=== PATIENT | male | born 1990 | race African-American/Black ===

== ENCOUNTER 2021-09-20 12:04 | Emergency (ER) | payer OTHER ==
[2021-09-20 13:23] LABS: HEMOGLOBIN 16.4 gm/dl (14.0-17.5); RED BLOOD COUNT 5.3 M/UL (4.20-5.50); WHITE BLOOD COUNT 8.7 K/UL (4.5-11.0)
[2021-09-20 14:13] LABS: BUN/CREATININE RATIO 9 (0-10)
== END 2021-09-20 21:08 | disposition short-term general hospital (02) ==
LOC: ER1 12:04
PROVIDERS: Physician Assistant
DX: R56.9 Unspecified convulsions (principal); F10.139 Alcohol abuse with withdrawal, unspecified; F17.200 Nicotine dependence, unspecified, uncomplicated
CPT/HCPCS: 70450; 80053; 80307; 83735; 85025; 93005; 96374; 96375; 99285; G0480; J2060; J3411; J3475; J7030